=== PATIENT | female | born 1995 | race Caucasian/White ===

== ENCOUNTER → 2020-02-09 14:09 | Outpatient (CLI) | payer BC, SELFPAY ==
--- NOTE | ~2020-02-09 | US_ITS ---
EXAMINATION: US OB >= 14 weeks Fetus DATE: 02/09/2020 14:38 INDICATION: Second trimester anatomic survey TECHNIQUE: Real-time ultrasound of the pelvis was performed. COMPARISON: None. FINDINGS: There is a single living fetus in variable presentation. The placenta is posterior and 5.8 cm from th e internal cervical os. heart rate is 146 beats per minute (bpm). cardiac activity and f etal movement are noted. The amniotic fluid index is subjectively normal. The following anatomy was identified as normal: 4 chamber heart 3 vessel cord cord insertion kidneys urinary bladder stomach spine diaphragm ventricles cisterna magna cerebellum The following biometric data were obtained: Biparietal diameter (BPD): 4.1 cm; head circumference (HC): 15.0 cm; abdominal circumference (AC): 12 .3 cm; femur length (FL): 2.5 cm. These measurements are concordant. Estimated weight is 217 g +/- 32 g, which correlates with the 20th percentile when 07/09/2020 is used as estimated date of delivery. As single measurements, these parameters are each equal to the following estimated gestational ages w ith ranges of +/- 2 standard deviations: BPD: 18 weeks 3 days ( 16 weeks 5 days - 20 weeks 2 days). HC: 18 weeks 1 days ( 16 weeks 4 days - 19 weeks 4 days). AC: 18 weeks 0 days ( 16 weeks 3 days - 19 weeks 5 days). FL: 17 weeks 6 days ( 16 weeks 3 days - 19 weeks 1 days). estimated gestational age based solely on measurements from this exam is 18 weeks 1 days +/- 1 weeks 2 days. IMPRESSION: 1. Single living fetus in variable presentation. 2. Estimated weight is 217 g +/- 32 g, which correlates with the 20th percentile when 07/09/2020 is used as estimated date of delivery. Reviewed, dictated and finalized at location A. IMPRESSION: 1. Single living fetus in variable presentation. 2. Estimated weight is 217 g +/- 32 g, which correlates with the 20th per centile when 07/09/2020 is used as estimated date of delivery.
== END ==
PROVIDERS: Visit Provider Obstetrics & Gynecology
DX: Z34.92 Encounter for supervision of normal pregnancy, unspecified, second trimester (principal)
CPT/HCPCS: 76805

== ENCOUNTER 2020-07-06 05:58 | Inpatient (IN) | payer BC, SELFPAY ==
[2020-07-06] VITALS (124 sets, daily range): BP systolic 93–135; BP diastolic 54–100; PULSE 68–162; RESP 14; TEMP 36.5–37.1; O2SAT 97–100; BMI 26.4
--- NOTE | 2020-07-06 05:58 | LDADM ---
This patient, Shraddha Dailey, was admitted to Labor/Delivery/Recovery 104 on 07/06/20 at 05:58. Plans for labor, pain management and were discussed with patient. Patient/family oriented to hospital policies and general routines including ID bracelet, bed and alarms, visiting hours, pain management, procedures, bathroom and other care routines, personal items, smoking policy, room service/diet and guest tray routines, infant security routines, and visiting hours. Patient/Family are encouraged to report perceived risks to care and to ask questions if they do not understand what they are told or what they should do. See OBIX for further documentation.
[2020-07-06 06:44] LABS: Basophils Percent Auto 0.5 % (0.2-1.2); Eosinophils Absolute Auto 0.1 K/mm3 (0-0.3); Eosinophils Percent Auto 1.4 % (0-4.4); Hematocrit 34.7 % (37.0-47.0); Hemoglobin 11.8 g/dL (12.0-15.0); Immature Granulocyte Absolute 0.07 K/mm3 (0.00-0.031); Immature Granulocyte Percent A 0.9 % (0-0.5); Lymphocytes Absolute Auto 1.91 K/mm3 (0.9-3.2); Lymphocytes Percent Auto 23.8 % (18.3-44.2); Mean Corpuscular Hemoglobin 29.5 pg (26-34); Mean Corpuscular Volume 86.8 fl (80-100); Mean Platelet Volume 9.7 fl (7.4-10.4); Monocytes Absolute Auto 0.6 K/mm3 (0.1-0.6); Neutrophils Absolute Auto 5.3 K/mm3 (1.3-6.7); Neutrophils Percent Auto 66.4 % (45.5-73.1); Platelet Count Result 147 k/mm3 (150-375); Red Cell Distribution Width 13.2 % (11.5-14.5)
[2020-07-06] MEDS: LACTATED RINGERS 1,000 ML 125 ML IV CONT ×2 (06:46→13:32)
[2020-07-06] MEDS: OXYTOCIN 30 UNITS/NS 500 ML 30 UNITS/500 ML BAG IV CONT (06:47)
--- NOTE | 2020-07-06 07:43 | WPDOBADMIT ---
Obstetrics - Admit Note Admission Note: AROM clear fluid 2-/-2 vertex clear fluid record reviewed. No pertinent additions to the history and/or any subsequent changes in the physical findings that are not consistent with the expected course of the were found. Additions to the history and/or subsequent changes in the physical findings follow. None.
--- NOTE | 2020-07-06 08:13 | P.PNAN_ITS ---
Anes - Eval Pre Procedure Date/Time: 07/06/20 08:13 Pre Op Diagnosis: IOL Patient Data Age: 25 Gender: F Height: 5 ft 4 in Weight: 70 kg Last Vital Signs Temp 36.7 C 07/06/20 08:00 Pulse 91 07/06/20 08:01 BP 112/79 07/06/20 08:01 Allergies Allergy/AdvReac Type Severity Reaction Status Date / Time No Known Allergies Allergy Unverified 01/21/17 15:35 Home Medications Medication Instructions Recorded Confirmed Type PNV cmb#95-ferrous fumarate-FA 1 tablet PO DAILY 06/15/20 06/15/20 History [] Laboratory Tests 07/06/20 07/06/20 07/06/20 06:34 06:34 06:34 WBC 8.0 K/mm3 K/mm3 (4.5-10.0) RBC 4.00 M/mm3 L M/mm3 (4.2-5.4) Hgb 11.8 g/dL L g/dL (12.0-15.0) Hct 34.7 % L % (37.0-47.0) MCV 86.8 fl fl (80-100) MCH 29.5 pg pg (26-34) MCHC 34.0 g/dl g/dl (32-36) RDW 13.2 % % (11.5-14.5) Plt Count 147 k/mm3 L k/mm3 (150-375) MPV 9.7 fl fl (7.4-10.4) Immature Gran % (Auto) 0.9 % H % (0-0.5) Neut % (Auto) 66.4 % % (45.5-73.1) Lymph % (Auto) 23.8 % % (18.3-44.2) [place] % (Auto) 7.0 % % (2.6-8.5) Eos % (Auto) 1.4 % % (0-4.4) Baso % (Auto) 0.5 % % (0.2-1.2) Lymph # (Auto) 1.91 K/mm3 K/mm3 (0.9-3.2) [place] # (Auto) 0.6 K/mm3 K/mm3 (0.1-0.6) Eos # (Auto) 0.1 K/mm3 K/mm3 (0-0.3) Baso # (Auto) 0.0 K/mm3 K/mm3 (0.0-0.1) Abs Immat Gran (auto) 0.07 K/mm3 H K/mm3 (0.00-0.031) Absolute Neuts (auto) 5.3 K/mm3 K/mm3 (1.3-6.7) Absolute Nucleated RBC 0.0 K/mm3 K/mm3 (0.0-0.012) Nucleated RBC % 0.0 % % (0.0-0.2) RPR Pending Blood Type A Positive Antibody Screen Negative Patient hx anesthesia problems: none Family hx anesthesia problems: none PMFSH Family History Family History Father Hypertension Social History Social History Smoking status: Never smoker Substance use: never Gender identity (if verbalized by the patient): Female Spiritual care concerns: Yes ([employer]) Exam Day of Procedure 07/06/20 08:13 Patient weight: normal Heart: regular rate and rhythm Lungs: clear to auscultation and normal air movement Airway: Mallampati scale Neurological: alert and oriented
[2020-07-06] MEDS: METHYLERGONOVINE MALEATE 0.2 MG/ML VIAL IM (16:27)
[2020-07-06] MEDS: miSOPROStol 200 MCG TABLET 1000 MCG RECTAL (16:36)
[2020-07-06] MEDS: CARBOPROST TROMETHAMINE 250 MCG/ML AMPUL IM (16:43)
[2020-07-06] MEDS: OXYTOCIN 30 UNITS/NS 500 ML 30 UNITS/500 ML BAG 999 UNITS IV CONT (16:52)
--- NOTE | 2020-07-06 17:16 | PM.OBPRVD ---
OB - Delivery Note Procedure Delivery date: 07/06/20 Procedure: events: Labor Induction Induction method: per pitocin protocol Delivery monitor: external FHT, external uterine and internal uterine Route of delivery: Laceration Description: Perineal - 2nd Degree Delivery repair: vicryl Quantitative Blood Loss (ml): 980 (Patient received methergine 0.2 mg im x 1 with pitocin. patient began to bleed with vaginal repair uterine massage.Patient received cytotec 1000 mcg with monitoring continued bleeding. Hemabate x 1 with some improvement. Bakri balloon placed without difficulty. bedside ultrasound done with good ) Anesthesia type: Epidural Disposition: observation Narrative: (...contd) placement. [place] Baby Time of : 16:20 Weeks of gestation at delivery: 39 Infant gender: Male Weight (pounds): 7 Weight (ounces): 7 presentation: vertex position: Left Occiput Anterior Placenta delivery description: Spontaneous cord vessel description: 3 Vessels score one minute: 9 score five minutes: 9
[2020-07-06] MEDS: ceFAZolin 2 GM/D5W 50 ML 2 GM/50 ML BAG IVPB (17:56)
[2020-07-06] MEDS: DIPHENOXYLATE/ATROPINE (*CRX) 2.5 MG TABLET 2 TABLET PO (17:56)
[2020-07-06] MEDS: BENZOCAINE 20% AER SPR (*SP) 56 GM CAN 1 SPRAY TOPICAL (19:04)
[2020-07-06] MEDS: OXYTOCIN 30 UNITS/NS 500 ML 30 UNITS/500 ML BAG 125 UNITS IV CONT (19:04)
[2020-07-06] MEDS: WITCH HAZEL 40 PADS 1 PAD TOPICAL (19:04)
[2020-07-06] MEDS: IBUPROFEN 600 MG TABLET PO (19:40)
[2020-07-07 00:05] VITALS: BP 117/81; PULSE 80; RESP 14; TEMP 37.2; O2SAT 98
[2020-07-07 04:20] VITALS: BP 121/72; PULSE 84; RESP 15; TEMP 36.8; O2SAT 100
[2020-07-07] MEDS: IBUPROFEN 600 MG TABLET PO ×2 (04:22→17:48)
[2020-07-07] MEDS: OXYTOCIN 30 UNITS/NS 500 ML 30 UNITS/500 ML BAG 125 UNITS IV CONT ×2 (04:24→08:38)
[2020-07-07 05:11] LABS: Hemoglobin 9.4 g/dL (12.0-15.0)
[2020-07-07] MEDS: DOCUSATE SODIUM 100 MG CAPSULE PO ×2 (08:38→17:48)
[2020-07-07] MEDS: MULTIVIT/MIN/PREN/FOL AC/IRON TABLET 1 TAB PO (08:38)
[2020-07-07] MEDS: POLYSACCHARIDE IRON COMPLEX 150 MG CAPSULE PO ×2 (08:38→17:47)
[2020-07-07 08:40] VITALS: BP 97/64; PULSE 74; RESP 18; TEMP 36.3
--- NOTE | 2020-07-07 11:04 | PM.OBPNVD ---
OB - PN: Subj Subjective Date/time seen: 07/07/20 11:04 Doing well no complaints OB - PN: Obj Data Labs CBC & Chem 7: 07/07/20 04:34 Labs: Laboratory Results - last 24 hr 07/07/20 04:34 Hgb 9.4 L Hct 28.0 L OB - PN A/P Assessment and Plan (1) (normal spontaneous vaginal delivery): Code(s): O80 - Encounter for full-term uncomplicated delivery Status: Acute Assessment and Plan: continue with pp care. (2) PPH ( hemorrhage): Code(s): O72.1 - Other immediate hemorrhage Status: Acute Assessment and Plan: stable Time Spent With Patient Time: Total time spent is greater than 50% in coordination of care (as documented) at patient's floor/unit and/or counseling patient: Exam GI: Other: ff below umbilicus
[2020-07-07 12:50] VITALS: BP 107/76; PULSE 90; RESP 18; TEMP 36.6
[2020-07-07 16:55] VITALS: BP 109/67; PULSE 89; RESP 18; TEMP 36.6
[2020-07-07 20:00] VITALS: BP 104/66; PULSE 85; RESP 18; TEMP 36.9; O2SAT 99
[2020-07-08] MEDS: DOCUSATE SODIUM 100 MG CAPSULE PO (08:52)
[2020-07-08] MEDS: MULTIVIT/MIN/PREN/FOL AC/IRON TABLET 1 TAB PO (08:52)
[2020-07-08] MEDS: POLYSACCHARIDE IRON COMPLEX 150 MG CAPSULE PO (08:52)
[2020-07-08 08:55] VITALS: BP 112/67; PULSE 84; RESP 16; TEMP 36.6
--- NOTE | 2020-07-08 10:07 | PC.NURSE ---
Patient viewed the discharge video Mother & Baby Care, The First Two Weeks . Patient was given the opportunity and encouraged to ask questions. Patient verbalized understanding of information shared and has been given the mother/baby guide for home reference.
--- NOTE | 2020-07-08 10:14 | P.PNOB_ITS ---
OB - PN: Subj Subjective Date/time seen: 07/08/20 10:14 doing well no complaints bleeding mild OB - PN: Obj Data Labs CBC & Chem 7: 07/07/20 04:34 OB - PN A/P Assessment and Plan (1) (normal spontaneous vaginal delivery): Code(s): O80 - Encounter for full-term uncomplicated delivery Status: Acute Assessment and Plan: d/c home (2) PPH ( hemorrhage): Code(s): O72.1 - Other immediate hemorrhage Status: Acute Assessment and Plan: stable continue pnv and iron Time Spent With Patient Time: Total time spent is greater than 50% in coordination of care (as docum ented) at patient's floor/unit and/or counseling patient: Exam GI: Other: ff below umbilicus
[2020-07-09 09:42] VITALS: BP 115/65; PULSE 81; RESP 16; TEMP 37.3; O2SAT 99
[2020-07-09 11:00] LABS: Rapid Plasma Reagin Non-Reactive (NonReactive)
--- NOTE | 2020-07-21 09:35 | PM.OBDSVD ---
DS: Admitting Diagnosis Admitting Diagnosis Admitting Diagnosis: labor DS: Discharge Diagnosis Discharge Diagnosis (1) PPH ( hemorrhage): Code(s): O72.1 - Other immediate hemorrhage Status: Acute (2) (normal spontaneous vaginal delivery): Code(s): O80 - Encounter for full-term uncomplicated delivery Status: Acute OB - DS: Summary OB Procedures : Ultrasound OB Procedures Intrapartum: Spontaneous Vag Delivery and Other (Bakri Balloon) OB Procedures: : None Peripartum Data Delivery Method: Natural Vaginal Laceration Description: Perineal - 2nd Degree Time Spent with Patient Time attestation: Total time spent providing and/or coordinating discharge services: DS: Data Data Completed and Pending Completed studies during hospitalization: Pending at discharge 07/06/20 16:27 Surgical [PTH] Routine Discharge Plan Discharge Attending physician on discharge: Chele Lyle Discharging Clinician: Chele Lyle Patient Disposition: Home, Self-Care Activity: may shower Diet: regular Discharge Instructions: Education: Mom and Baby Guide and Preeclampsia Handout Given to: Mother Follow-Up: Call your delivering provider's office for an appointment to be seen in: 6 Weeks Mom and baby should come to the [facility] for the follow-up appointment. Appointment Date/Time: July 09, 2020 at 9:00 am What to expect at your follow-up visit: Physical Assessment Call [phone] if you are unable to keep your appointment time. BREAST CARE: * Wear a snug supportive bra. * For engorgement discomfort: Breast Feeding: * Apply warm moist washcloths * Express milk as needed to relieve engorgement * Wear loose clothing * For sore nipples: * Identify correct latch-on * Apply warm moist washcloths before and after nursing * Air dry nipples after nursing * May apply Lansinoh cream to nipples EPISIOTOMY/PERINEAL CARE: * Until bleeding stops, use your sherlyn bottle after urinating * Change your pad frequently throughout the day * You may take sitz baths several times a day (fill your bathtub with warm water and soak for 20 minutes.) Do NOT bathe in the water * No tub baths until seen by your physician - You may shower ACTIVITY: * Rest as much as possible. * Do not exercise or lift anything heavier than your baby (such as laundry or other children.) * Avoid stairs or driving as much as possible. * Do not put anything into the vagina. No douching, tampons, or sexual activity until seen by physician. NOTIFY PHYSICIAN IF YOU HAVE ANY QUESTIONS OR IF ANY OF THE FOLLOWING SYMPTOMS OCCUR: * If your episiotomy or incision becomes red, swollen, or more painful than what you have experienced in the hospital. * If your vaginal bleeding becomes foul smelling. * If your vaginal bleeding becomes more heavy than a period or if your bleeding changes from pink to bright red. However, you may pass an occasional walnut-sized clot once or twice for the first week . * If you experience a sharp, shooting pain in you calves. * If you discover a hard, reddened area on your breast or if you experience flu-like symptoms. DIET: * Eat regular, well-balanced meals. * Drink plenty of fluids daily. If , drink to thirst. Stand Alone Forms: General Discharge Information Follow-up/Referrals: Chele Lyle MD [Physician] - Discharge Medications: Continued PNV cmb#95-ferrous fumarate-FA [] 28 mg iron- 800 mcg Tablet 1 tablet PO DAILY RF: 0 Discontinued norethindrone-e.estradiol-iron [Junel FE 06/06 (28)] 1 mg-20 mcg (21)/75 mg (7) tablet 1 tablet PO DAILY RF: 0 ergocalciferol (vitamin D2) [Vitamin D2] 1,250 mcg (50,000 unit) capsule 1,250 mcg PO DAILY RF: 0 Date of admission: 07/06/20 05:58 Primary Care
== END 2020-07-08 12:07 | disposition home or self-care (01) | DRG 806 ==
LOC: ANHLDR 06:04 → ANHOB2 20:30
PROVIDERS: Admitting Provider Obstetrics & Gynecology; Visit Provider Obstetrics & Gynecology
DX: O70.1 Second degree perineal laceration during delivery (principal); O72.1 Other immediate postpartum hemorrhage; Z37.0 Single live birth; Z3A.39 39 weeks gestation of pregnancy
CPT/HCPCS: 36415; 85014; 85018; 85025; 86592; 86850; 86900; 86901; 88307; A9270; J0690; J2210; J2590; J2795; J7030; J7120

== ENCOUNTER 2020-12-22 10:43 | Emergency (ER) | payer BC, SELFPAY ==
--- NOTE | ~2020-12-22 | CT_ITS ---
EXAMINATION: CT abdomen pelvis wo con DATE: 12/22/2020 12:11 INDICATION: Lower abdominal pain TECHNIQUE: Computed tomography (CT) of the abdomen and pelvis was performed without intravenous contr ast. The dose-length product was 240.79 mGy-cm. Automated exposure control and iterative reconstructi on technique were employed. COMPARISON: None. FINDINGS: Lung bases are unremarkable. Heart size normal. No significant pleural or pericardial effus ion. The no significant vascular abnormality. No lymphadenopathy. There are nonobstructing punctate bilateral renal stones. No significant hydronephrosis. No ureteral stones. The liver, spleen, pancreas, adrenal glands are unremarkable. No free air or free fluid. Nonobstructi ve bowel gas pattern. No acute osseous abnormality. IMPRESSION: 1. Nonobstructing bilateral nephrolithiasis. Reviewed, dictated and finalized at location A.
--- NOTE | ~2020-12-22 | US_ITS ---
EXAMINATION: US pelvic complete w TV DATE: 12/22/2020 12:43 INDICATION: Pelvic pain Comparison:No prior studies for comparison. TECHNIQUE: Multiple transabdominal and endovaginal sonographic images of the pelvis performed. FINDINGS: The uterus measures 6.4 x 3.8 x 4.9 cm. The endometrial complex measures 3 mm. The right ovary measures 2.7 x 1.6 x 1.8 cm and the left ovary measures 2 x 1.5 x 1.2 cm. There are small follicles in each ovary. Normal doppler signal in both ovaries. There is no free fluid in the pelvis. There are no abnormal masses seen on either side. IMPRESSION: 1. Normal pelvic ultrasound. Reviewed, dictated and finalized at location A.
[2020-12-22 10:44] VITALS: BP 134/86; PULSE 84; RESP 20; TEMP 36.3; O2SAT 100
[2020-12-22 11:08] LABS: Basophils Absolute Auto 0.1 K/mm3 (0.0-0.1); Basophils Percent Auto 1.3 % (0.2-1.2); Eosinophils Absolute Auto 0.1 K/mm3 (0-0.3); Eosinophils Percent Auto 1.9 % (0-4.4); Hematocrit 38.8 % (37.0-47.0); Hemoglobin 12.2 g/dL (12.0-15.0); Immature Granulocyte Absolute 0.01 K/mm3 (0.00-0.031); Immature Granulocyte Percent A 0.3 % (0-0.5); Lymphocytes Absolute Auto 1.33 K/mm3 (0.9-3.2); Lymphocytes Percent Auto 35.4 % (18.3-44.2); Mean Corpuscular HGB Conc 31.4 g/dl (32-36); Mean Corpuscular Hemoglobin 25.5 pg (26-34); Mean Corpuscular Volume 81.2 fl (80-100); Mean Platelet Volume 9.7 fl (7.4-10.4); Monocytes Absolute Auto 0.2 K/mm3 (0.1-0.6); Monocytes Percent Auto 6.4 % (2.6-8.5); Neutrophils Absolute Auto 2.1 K/mm3 (1.3-6.7); Neutrophils Percent Auto 54.7 % (45.5-73.1); Platelet Count Result 227 k/mm3 (150-375); Red Blood Count 4.78 M/mm3 (4.2-5.4); Red Cell Distribution Width 15.5 % (11.5-14.5); White Blood Count 3.8 K/mm3 (4.5-10.0)
[2020-12-22 11:15] LABS: Add Urine Microscopic? YES; Appearance Urine Clear (Clear); Bilirubin Urine Negative (Negative); Blood Urine 2+ (Negative); Color Urine Yellow (Yellow); Glucose Urine UA Negative (Negative); Ketones Urine Negative (Negative); Leukocyte Esterase Ur Trace LEU/UL (Negative); Mucus Urine Rare /lpf; Nitrate Urine Negative (Negative); Protein Urine 1+ mg/dL (Negative); RBC Urine >75 /hpf (0-2); Specific Grav Ur 1.019 (1.001-1.035); Squamous Epithelial Cell Urine Moderate /hpf (Few); Urobilinogen Urine Negative mg/dL (<2.0)
[2020-12-22 11:19] LABS: Alanine Aminotransferase 18 U/L (4-35); Albumin Level 4.4 g/dL (3.5-5.1); Alkaline Phosphatase 63 U/L (38-126); Anion Gap 9 mmol/L (8-16); Aspartate Amino Transferase 24 U/L (14-36); Bilirubin,Total 0.5 mg/dL (0.2-1.3); Blood Urea Nitrogen 14 mg/dL (7-17); Calcium 9.1 mg/dL (8.4-10.2); Carbon Dioxide 23 mmol/L (22-30); Chloride 108 mmol/L (98-107); Estimated CRCL calculation 73 ml/min; Estimated Glomerular Filt Rate > 60; Glucose 101 mg/dL (65-110); Lipase 97 U/L (23-300); Potassium 3.7 mmol/L (3.4-5.0); Sodium 140 mmol/L (137-145)
[2020-12-22] MEDS: KETOROLAC 30 MG/ML VIAL (*BKC) IV PUSH (11:59)
[2020-12-22] MEDS: ONDANSETRON INJ 4 MG/2 ML VIAL IV PUSH (11:59)
--- NOTE | 2020-12-22 13:37 | ED.ABDPAIN ---
HPI - Abdominal Pain General Chief Complaint: Abdominal Pain Stated Complaint: ABD PAIN Time Seen by Provider: 12/22/20 11:41 History of Present Illness HPI narrative: Patient is a 25-year-old female who presents ER with lower abdominal pain. Sudden onset 1 hour prior to arrival. Associate with nausea. Severe. Improving at this time but still present. No urinary frequency urgency or dysuria. No vaginal discharge or bleeding. No history of kidney stones or ovarian cyst. Does not believe she is . Related Data Home Medications Medication Instructions Recorded Confirmed PNV cmb#95-ferrous fumarate-FA 1 tablet PO DAILY 06/15/20 06/15/20 [] Allergies Allergy/AdvReac Type Severity Reaction Status Date / Time No Known Allergies Allergy Verified 07/06/20 08:36 Review of Systems Review of Systems: All systems reviewed & are unremarkable except as noted in HPI and below Constitutional: Constitutional: Denies chills, Denies fever(s) and Denies weakness Cardiovascular: Cardiovascular: Denies chest pain and Denies radiating jaw, neck or arm pain Gastrointestinal: Gastrointestinal: Reports abdominal pain, Denies diarrhea, Reports nausea and Denies vomiting Genitourinary: Genitourinary: Denies abnormal vaginal bleeding, Denies hematuria, Denies nocturia, Denies dysuria, Denies flank pain and Denies vaginal discharge PMFSH Past Medical History Medical History (Updated 12/22/20 @ 13:42 by Pk Nicholas MD) (normal spontaneous vaginal delivery) PPH ( hemorrhage) Surgical History Surgical History (Updated 12/22/20 @ 13:38 by Pk Nicholas MD) No history of previous surgery Family History Family History Father Hypertension Social History Social History Smoking status: Never smoker Substance use: never Gender identity (if verbalized by the patient): Female Spiritual care concerns: Yes ([employer]) Exam Narrative: GENERAL: Well-appearing, well-nourished, and in no acute distress. HEAD: Normocephalic, atraumatic. CHEST: Clear to auscultation. No respiratory distress. HEART: Regular rate and rhythm. Normal peripheral pulses. ABDOMEN: Soft, moderate tenderness bilateral lower quadrants without guarding, nondistended. EXTREMITIES: Normal range of motion. No edema. SKIN: Warm, dry, no rash. NEURO: Alert and oriented x3. PSYCH: Normal mood and affect. Course Course Emergency Course: Will place on 3 days of antibiotic in case she is developing cystitis. No evidence of passed kidney stone or ovarian cyst/torsion. Discharge home. Vital Signs Vital signs: Vital Signs Temperature 97.3 F L 12/22/20 10:44 Pulse Rate 84 12/22/20 10:44 Respiratory Rate 20 12/22/20 10:44 Blood Pressure 134/86 12/22/20 10:44 Pulse Oximetry 100 12/22/20 10:44 Temperature 97.3 F L 12/22/20 10:44 Pulse Rate 84 12/22/20 10:44 Respiratory Rate 20 12/22/20 10:44 Blood Pressure 134/86 12/22/20 10:44 Pulse Oximetry 100 12/22/20 10:44 MDM - Abdominal Pain Lab Data Result diagrams: 12/22/20 10:52 12/22/20 10:52 Labs: Lab Results 12/22/20 12/22/20 12/22/20 Range/Units 10:52 10:52 10:57 WBC 3.8 L (4.5-10.0) K/mm3 RBC 4.78 (4.2-5.4) M/mm3 Hgb 12.2 (12.0-15.0) g/dL Hct 38.8 (37.0-47.0) % MCV 81.2 (80-100) fl MCH 25.5 L (26-34) pg MCHC 31.4 L (32-36) g/dl RDW 15.5 H (11.5-14.5) % Plt Count 227 D (150-375) k/mm3 MPV 9.7 (7.4-10.4) fl Immature Gran % (Auto) 0.3 (0-0.5) % Neut % (Auto) 54.7 (45.5-73.1) % Lymph % (Auto) 35.4 (18.3-44.2) % [place] % (Auto) 6.4 (2.6-8.5) % Eos % (Auto) 1.9 (0-4.4) % Baso % (Auto) 1.3 H (0.2-1.2) % Lymph # (Auto) 1.33 (0.9-3.2) K/mm3 [place] # (Auto) 0.2 (0.1-0.6) K/mm3 Eos # (Auto) 0.1
[2020-12-22 14:00] VITALS: BP 127/82; PULSE 79; RESP 16; O2SAT 100
== END 2020-12-22 14:00 | disposition home or self-care (01) ==
PROVIDERS: Emergency Provider Emergency Medicine
DX: N39.0 Urinary tract infection, site not specified (principal); N20.0 Calculus of kidney
CPT/HCPCS: 36415; 74176; 76830; 76856; 80053; 81001; 81025; 83690; 85025; 87086; 96374; 96375; 99284; J1885; J2405